=== PATIENT | female | born 1940 | race Caucasian/White ===

== ENCOUNTER → 2017-01-11 | Outpatient (CLI) | payer MEDICARE ==
--- NOTE | 2017-01-11 09:51 | RAD ---
EXAM: MAMMO SCREENING BILATERAL. HISTORY: Screening. COMPARISON: Previous mammogram from 2016 and 2015 FINDINGS: 2-D s mammograms were obtained of both breasts in the CC and MLO projections. Computer-aided detection (CAD) was utilized. Breast density category B: There are scattered areas of fibroglandular densities. There is an asymmetry in the lower right breast approximately 4 cm from the nipple. This was not as prominent on previous study but the kit images from 2016 suggests it may have been present. No suspicious calcifications. The nipples and skin are within normal limits. IMPRESSION: Asymmetry in the lower right breast which may have been present in 2016 but is more prominent on current study. This most likely represents overlapping fibroglandular tissue. However confirmation with spot compression views is recommended. BI-RADS CATEGORY: 0 INCOMPLETE: NEEDS ADDITIONAL IMAGING EVALUATION AND/OR PRIOR MAMMOGRAMS FOR COMPARISON. RECOMMENDED FOLLOW-UP: ADD ADDITIONAL IMAGING. Spot compression views of the right lower breast. PQRS compliance statement: Patient information was entered into a reminder system with a target due date for the next mammogram. Mammography is a sensitive method for finding small breast cancers, but it does not detect them all and is not a substitute for careful clinical examination. A negative mammogram does not negate a clinically suspicious finding and should not result in delay in biopsying a clinically suspicious abnormality. "Our facility is accredited by the [employer] Mammography [employer]."
== END | disposition home or self-care (01) ==
LOC: MAMMO 08:32
PROVIDERS: ATTEND Physician Assistant Medical
DX: Z12.31 Encounter for screening mammogram for malignant neoplasm of breast (principal); Z80.3 Family history of malignant neoplasm of breast
CPT/HCPCS: G0202; 77067

== ENCOUNTER → 2017-01-18 | Outpatient (CLI) | payer MEDICARE ==
--- NOTE | 2017-01-18 12:41 | RAD ---
DATE: 01/18/2017 EXAM: DIGITAL DIAGNOSTIC RT, BREAST RIGHT HISTORY: Asymmetry right breast COMPARISON: 01/11/2017 This study was interpreted with the benefit of Computerized Aided Detection (CAD). FINDINGS: Breast Density: SCATTERED The breast parenchyma shows scattered fibroglandular densities. Breast parenchyma level B. Spot compression views of the right breast demonstrates persistence of asymmetry in the right lower breast on the MLO view. Ultrasound of this region demonstrated no definite evidence of mass or lesion from 3 to 7:00 position. IMPRESSION: Probably benign findings. Recommend right breast mammogram in 6 months. BI-RADS CATEGORY: 3 PROBABLE BENIGN-SHORT TERM F/U RECOMMENDED FOLLOW-UP: 6M 6 MONTH FOLLOW-UP PQRS compliance statement: Patient information was entered into a reminder system with a target due date 07/19/2017 for the next mammogram. Mammography is a sensitive method for finding small breast cancers, but it does not detect them all and is not a substitute for careful clinical examination. A negative mammogram does not negate a clinically suspicious finding and should not result in delay in biopsying a clinically suspicious abnormality. "Our facility is accredited by the [employer] Mammography [employer]."
== END | disposition home or self-care (01) ==
LOC: MAMMO 11:07
PROVIDERS: ATTEND Physician Assistant Medical
DX: N64.89 Other specified disorders of breast (principal)
CPT/HCPCS: 76641; G0206; 77065